=== PATIENT | female | born 1975 | race Caucasian/White ===

== ENCOUNTER 2017-12-17 10:21 | Inpatient (IN) | payer OTHER ==
[~2017-12-17] VITALS: Ht 157.5 cm; Wt 71.7 kg
[2017-12-23] MEDS ORDERED: POLY119PG PO (07:05)
[2017-12-23] MEDS ORDERED: IBUPROFEN800 MG PO (07:05)
[2017-12-23] MEDS ORDERED: GABAPENTIN600 MG PO (07:05)
== END 2017-12-23 08:42 | disposition home or self-care (01) | DRG 743 ==
LOC: OB/GYN 12-21 06:00 → O/R 12-21 06:00 → SURH 12-21 07:00 → OB/GYN 12-21 09:50 → SURH 12-21 12:15 → OB/GYN 12-23 08:42
PROVIDERS: Obstetrics & Gynecology
PROC: 0UT70ZZ Resection of Bilateral Fallopian Tubes, Open Approach (ICD-10-PCS; 2017-12-21)
PROC: 0UB10ZX Excision of Left Ovary, Open Approach, Diagnostic (ICD-10-PCS; 2017-12-21)
PROC: 0UT90ZZ Resection of Uterus, Open Approach (ICD-10-PCS; principal; 2017-12-21 07:00)
DX: D25.1 Intramural leiomyoma of uterus (principal); N93.8 Other specified abnormal uterine and vaginal bleeding; I10 Essential (primary) hypertension; N83.8 Other noninflammatory disorders of ovary, fallopian tube and broad ligament